=== PATIENT | female | born 1960 | race Caucasian/White ===

== ENCOUNTER 2018-04-11 11:04 | Emergency (ER) | payer BC, SELFPAY ==
[2018-04-11 11:15] VITALS: BP 139/90; PULSE 66; RESP 13; TEMP 36.6; O2SAT 100
--- NOTE | 2018-04-11 11:23 | ED.SKABFB ---
HPI - Skin/Abscess/Foreign Bdy General Chief complaint: Skin/Abscess/Foreign Body Stated complaint: Left index finger cut Time Seen by Provider: 04/11/18 11:23 Source: patient Mode of arrival: ambulatory Limitations: no limitations History of Present Illness HPI narrative: 57 yo female was cutting [place] this AM with serrated knife and cut left index finger while doing this. Denies weakness, numbness. No PMH. Related Data Allergies Allergy/AdvReac Type Severity Reaction Status Date / Time codeine AdvReac Mild Verified 04/11/18 11:21 Review of Systems Review of Systems All systems reviewed & are unremarkable except as noted in HPI and below Constitutional Denies chills, Denies fever(s), Denies lethargy and Denies weakness Eyes Denies change in vision, Denies eye discharge, Denies irritation and Denies loss of vision ENT Ears, Nose, Mouth, and Throat: Denies change in voice, Denies neck pain and Denies sore throat Cardiovascular Denies chest pain, Denies irregular heart rhythm, Denies lightheadedness, Denies palpitations, Denies dyspnea, Denies dyspnea on exertion and Denies orthopnea Respiratory Denies cough, Denies dyspnea, Denies dyspnea on exertion and Denies wheezing Gastrointestinal Gastrointestinal: Denies abdominal pain, Denies change in bowel habits, Denies diarrhea, Denies nausea and Denies vomiting Genitourinary Denies hematuria, Denies flank pain, Denies urinary incontinence and Denies urinary urgency Musculoskeletal Denies neck pain Integumentary/Breasts Denies pruritus, Denies erythema, Denies rash and Reports wounds Neurologic Denies confusion, Denies loss of vision and Denies weakness Psychiatric Denies anxiety, Denies confusion, Denies depression, Denies homicidal ideation and Denies suicidal ideation Endocrine Denies palpitations Hematologic/Lymphatic Denies easy bruising Allergic/Immunologic Denies wheezing PFSH Social History Smoking Status: Never smoker Exam Initial Vital Signs Initial Vital Signs: Vital Signs Temperature 97.9 F 04/11/18 11:15 Pulse Rate 66 04/11/18 11:15 Respiratory Rate 13 04/11/18 11:15 Blood Pressure 139/90 H 04/11/18 11:15 Pulse Oximetry 100 04/11/18 11:15 Const General: cooperative and well developed Nutritional Appearance: well nourished Orientation: alert, awake, oriented x3 and not confused HENMT Head: normocephalic and atraumatic Ears: external ears normal and TM's normal bilaterally Nose: external nose normal and No nasal discharge Face and sinus: sinuses nontender, face symmetric, no sinus tenderness and No dry mucous membranes Mouth: oral mucosae normal and moist mucous membranes Teeth and gingiva: dentition normal Throat: tonsils normal and uvula midline Eyes General: appearance normal, both eyes and all related structures Eyelids: eyelids normal Conjunctivae: conjunctivae normal Sclera: sclerae normal Pupils: PERRL EOM: EOM intact bilaterally Neck Neck: normal visual inspection, trachea midline, No lymphadenopathy, No midline deformity and No JVD Lymphatic: No lymphedema Chest Chest: normal inspection of the chest Resp Effort & Inspection: normal respiratory effort, able to speak in complete sentences, no respiratory distress and no use of accessory muscles Auscultation: clear to auscultation bilaterally, no rales, no rhonchi and no wheezes Cardio Rate: regular rate Rhythm: regular rhythm Heart Sounds: no click, no gallops, no murmurs and no rubs Pulses: normal peripheral pulses GI Inspection: non-distended Palpation: soft, no hepatosplenomegaly, No guarding, No pulsatile mass and No tender Auscultation: normal bowel sounds Back/Spine/Pelvis Back: No CVA tenderness Cervical Spine: cervical ROM normal and No pain with cervical ROM Thoracic/Lumbar Spine: thoracic and lumbar spine normal to inspection Skin General: no rashes or lesions noted, No jaundice and No petechiae Other: 2cm full-thickness linear incision over the PIP on the dorsal aspect of the left 2nd finger. Full strength resisted flexion and extension. She is distally neurologically intact and there is normal cap refill less than 2 sec. Neuro General: alert, oriented x3, gait normal and no focal motor deficits Cranial Nerves: CN's II-XI intact bilaterally Speech: speech normal Motor: strength 5/5 throughout Sensory Exam: no sensory deficits noted Extrem General: full ROM, no clubbing, cyanosis or edema, no pedal edema and no calf tenderness Psych Appearance: well kempt Mental Status: mental status grossly normal Attitude: cooperative Thought Content: normal and suicidality Judgment: judgment good Procedures Joint Aspiration/Injection Laceration 1: Site: hand Side (If applicable): left Size (cm): 2 Description: linear Depth: simple, single layer Local Anesthetic: lidocaine 1% Amount of anesthesia used (mL): 2 Pre-repair: wound explored and deep structures intact Skin layer closed with: nylon Size (cm): 5-0 Number of sutures: 7 Technique: running Course Vital Signs - 8 hr 04/11/18 11:15 Temperature 97.9 F Pulse Rate 66 Respiratory Rate 13 Blood Pressure 139/90 H Pulse Oximetry 100 Discharge Plan Departure Patient Disposition: Home, Self-Care Clinical Impression: Finger laceration Instructions: DI for Laceration Repair -- Finger Activity Restrictions/Additional Instructions: Thank you for trusting is with your care today. Your laceration was repaired with sutures and you should have these out in 10 days. Return to the ER if you developed redness, swelling, drainage, or fevers. Keep the area clean and dry
[2018-04-11 13:13] VITALS: BP 130/100; PULSE 63; RESP 16; O2SAT 97
== END 2018-04-11 13:21 | disposition home or self-care (01) ==
PROVIDERS: Emergency Provider Emergency Medicine
DX: S61.211A Laceration without foreign body of left index finger without damage to nail, initial encounter (principal); W26.0XXA Contact with knife, initial encounter
CPT/HCPCS: 12001; 99282

== ENCOUNTER → 2018-07-14 12:35 | Outpatient (CLI) | payer BC, SELFPAY ==
--- NOTE | 2018-07-14 | DI.CT.S_ITS ---
PROCEDURE: CT LE RT WO CON INDICATIONS: POST TRAUMATIC ARTHRITIC RIGHT ANKLE TECHNIQUE: Noncontrast 1-1.5 mm axial sections acquired from above the tibiotalar joint to the bottom of the calcaneus, with coronal and sagittal reformats. COMPARISON: [facility], CR, XR FOOT 1 OR 2 VIEWS RIGHT, 07/09/2018, 13:19. [facility], CR, XR ANKLE 3+ VIEWS RIGHT, 07/09/2018, 13:13. FINDINGS: Image quality: Diagnostic. Bones: No acute fracture or dislocation is appreciated involving the osseous structures of the right foot. There is an ossific structure identified at the anterior process of the calcaneus, probably related to a chronic unfused fracture. 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 Moderate degenerative changes of the cuboid-metatarsal joints are present. There are mild to moderate degenerative changes involving the talonavicular, subtalar, tibiotalar, and tarsometatarsal joints. There are mild degenerative changes of the 1st metatarsophalangeal joint. No suspicious osseous lesions are identified. The ankle mortise is well-maintained. There are no osteochondral fragments involving the tibial plafond toward the talar dome. Soft tissues: No soft tissue masses or loculated fluid collections are identified. The imaged muscles are within normal limits. Present of the ligaments, tendons, and cartilaginous structures of the right foot are not adequately evaluated on CT. IMPRESSION: 1. No acute fractures of the right foot. 2. Advanced degenerative changes involving the hindfoot and midfoot joints are more prominent involving the calcaneocuboid joint. There appears to be an old injury involving the anterior process of the calcaneus. Dictated by: Jamey Caldera M.D. on 07/14/2018 at 15:14 Approved by: Jamey Caldera M.D. on 07/14/2018 at 15:20
== END ==
PROVIDERS: Visit Provider Podiatrist
DX: M19.171 Post-traumatic osteoarthritis, right ankle and foot (principal)
CPT/HCPCS: 73700

== ENCOUNTER 2019-04-14 20:33 | Emergency (ER) | payer BC, SELFPAY ==
[2019-04-14 20:37] VITALS: BP 116/77; PULSE 67; RESP 15; TEMP 36.3; O2SAT 98; BMI 22.6
--- NOTE | 2019-04-14 20:41 | DI.RAD.S_ITS ---
PROCEDURE: XR TOE LT MIN 2V INDICATIONS: unable to move toe after catching it on something TECHNIQUE: 3 views of the third through fifth toe(s) acquired. COMPARISON: None. FINDINGS: There is either subluxation or dislocation of the PIP joint of the small toe of the left foot. No other fractures or dislocations. IMPRESSION: Subluxation or dislocation of the PIP joint of the small toe of the left foot. Dictated by: Daniel Colin M.D. on 04/14/2019 at 21:15 Approved by: Daniel Colin M.D. on 04/14/2019 at 21:17
--- NOTE | 2019-04-14 23:11 | ED.LOWEXIN ---
HPI - Extremity Injury (Lower) General Chief Complaint: Extremity Injury, Lower Stated Complaint: LEFT BIG TOE INJURY Time Seen by Provider: 04/14/19 23:03 Source: patient Mode of arrival: ambulatory Limitations: no limitations History of Present Illness HPI Narrative: Patient is a 58-year-old female here for evaluation of a left little toe injury. It is the left little toe not the left great toe. She stated that she caught it on a piece of rolled up carpet. Initially it was bent outward but that has seemed to improve. She does have pain with ambulation. Related Data Allergies Allergy/AdvReac Type Severity Reaction Status Date / Time codeine AdvReac Mild Verified 04/11/18 11:21 Review of Systems Musculoskeletal Comments: Left little toe pain Integumentary/Breasts Comments: Abrasion on the top of the left little toe Neurologic Comments: Pain and tingling to the left foot Hematologic/Lymphatic Denies easy bleeding and Denies easy bruising PFSH Medical History Healthy adult (Acute) Social History Smoking Status: Never smoker Social History Smoking Status: Never smoker Exam Initial Vital Signs Initial Vital Signs: Vital Signs Temperature 97.3 F L 04/14/19 20:37 Pulse Rate 67 04/14/19 20:37 Respiratory Rate 15 04/14/19 20:37 Blood Pressure 116/77 04/14/19 20:37 Pulse Oximetry 98 04/14/19 20:37 Const General: cooperative, healthy appearing, comfortable, well developed and well groomed Resp Effort & Inspection: normal respiratory effort Cardio Pulses: dorsalis pedis present on the left Skin Other: Very superficial abrasion to the top of the left foot Neuro General: alert and awake Sensory Exam: no sensory deficits noted Extrem Other: Tenderness to palpation without gross deformity to the left little toe Psych Appearance: grossly normal and well kempt Procedures Orthopedic Joint Reduction Joint #1: Time Out Performed: Yes Side: left Joint Reduction Location: toe Analgesia: other (Localized injection) Local Anesthesia: lidocaine 1% Amount of anesthesic used (mL): 4 Technique used: direct manipulation Post-reduction neuro exam: intact Post-reduction vascular: intact Post Reduction X-Ray Obtained: No Post Reduction X-Ray Results: reduced Splint Applied: Yes (Elba-taped) Patient Tolerated Procedure: Well Orthopedic Splinting/Casting Injury #1: Side: left Lower Extremity Injury Location: toe Lower Extremity Immobilizer: elba tape Post splinting neuro exam: intact Post splinting vascular exam: intact Placed by: Provider Course Orders Ordered: ED Orders 04/14/19 20:41 XR toe LT min 2V Stat Vital Signs - 8 hr 04/14/19 20:37 Temperature 97.3 F L Pulse Rate 67 Respiratory Rate 15 Blood Pressure 116/77 Pulse Oximetry 98 MDM - Extremity Injury (Lower) Imaging Data Foot x-ray: Radiologist's impression: [address] [address] XRay Report Signed Patient: Kris Marquez#: [id number] : 9Acct:[id number] Age/Sex: 58 / FDate of Service: 04/14/19 Loc: ED Accession Number: [id number] Procedure: XR toe LT min 2V Ordering Provider: Juliocesar Zheng D.O. PROCEDURE: XR TOE LT MIN 2V INDICATIONS: unable to move toe after catching it on something TECHNIQUE: 3 views of the third through fifth toe(s) acquired. COMPARISON: None. FINDINGS: There is either subluxation or dislocation of the PIP joint of the small toe of the left foot. No other fractures or dislocations. IMPRESSION: Subluxation or dislocation of the PIP joint of the small toe of the left foot. Dictated by: Daniel Colin M.D. on 04/14/2019 at 21:15 Approved by: Daniel Colin M.D. on 04/14/2019 at 21:17 [facility] Narrative Medical decision making narrative: The x-ray does appear to be what was a subluxation of the left little toe. This does fit the history and physical exam. It was reduced with direct manipulation after local anesthesia as described above. Was elba tape the toe next to. Patient was given return precautions and follow-up instructions. She expressed understanding and agreement plan. Discharge Plan Departure Patient Disposition: Home Clinical Impression: Dislocation of toe of left foot Qualifiers: Encounter type: initial encounter Qualified Code(s): S93.105A - Unspecified dislocation of left toe(s), initial encounter Discharge Date/Time: 04/14/19 23:28 Interventions: ED Discharge Assessment Last Done: 04/14/19 23:28 Instructions: DI for Dislocated Toe Activity Restrictions/Additional Instructions: You can shower like normal. You can walk like normal. Keep the toe elba-taped to the toe next to it like we discussed. Return to the emergency department for any new or worsening symptoms
== END 2019-04-14 23:28 | disposition home or self-care (01) ==
PROVIDERS: Emergency Provider Emergency Medicine
DX: S93.105A Unspecified dislocation of left toe(s), initial encounter (principal)
CPT/HCPCS: 73660; 99282; 99283